=== PATIENT | female | born 2000 | race African-American/Black ===

== ENCOUNTER 2022-03-10 18:53 | Emergency (ER) | payer OTHER, SELFPAY ==
--- NOTE | ~2022-03-10 | XR_ITS ---
EXAMINATION: XR lumbar spine min 4V DATE: 03/10/2022 21:59 INDICATION: Low back pain TECHNIQUE: Anteroposterior, lateral, and bilateral oblique views of the lumbar spine, and cone-down l ateral view of the lumbosacral junction were obtained. COMPARISON: None. FINDINGS: There is no fracture, dislocation, or subluxation. The vertebral body heights, alignment, a nd intervertebral disc spaces are normal. The paravertebral soft tissues are unremarkable. IMPRESSION: 1. No acute osseous abnormality. Reviewed, dictated and finalized at location A.
--- NOTE | ~2022-03-10 | CT_ITS ---
EXAMINATION: CT cervical spine wo con DATE: 03/10/2022 22:14 INDICATION: Neck pain TECHNIQUE: Computed tomography (CT) of the cervical spine was performed without intravenous contrast. The dose-length product (DLP) was 313.84 mGy-cm. Automated exposure control and iterative reconstruc tion technique were employed. COMPARISON: None FINDINGS: There is reversal of normal cervical lordosis. There is no fracture, dislocation, or sublux ation. The vertebral body heights, alignment, and intervertebral disc spaces are normal. The paravert ebral soft tissues are unremarkable. The odontoid is intact. IMPRESSION: 1. No acute osseous abnormality. Reviewed, dictated and finalized at location A.
--- NOTE | ~2022-03-10 | XR_ITS ---
EXAMINATION: XR thoracic spine 3V DATE: 03/10/2022 22:00 INDICATION: Thoracic back pain TECHNIQUE: AP, lateral and lateral swimmer's views of the thoracic spine were obtained. COMPARISON: None. FINDINGS: There is no fracture, dislocation, or subluxation. The vertebral body heights, alignment, a nd intervertebral disc spaces are normal. The paravertebral soft tissues are unremarkable. IMPRESSION: 1. No acute osseous abnormality. Reviewed, dictated and finalized at location A.
[2022-03-10 19:17] VITALS: BP 140/81; PULSE 78; RESP 16; TEMP 37.1; O2SAT 100
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
[2022-03-10] MEDS: IBUPROFEN 600 MG TABLET PO (20:22)
[2022-03-10 22:27] VITALS: BP 110/76; PULSE 82; RESP 20
== END 2022-03-10 22:28 | disposition home or self-care (01) ==
PROVIDERS: Emergency Provider Emergency Medicine
DX: S16.1XXA Strain of muscle, fascia and tendon at neck level, initial encounter (principal); S29.9XXA Unspecified injury of thorax, initial encounter; S39.92XA Unspecified injury of lower back, initial encounter; V43.52XA Car driver injured in collision with other type car in traffic accident, initial encounter
CPT/HCPCS: 72072; 72110; 72125; 81025; 99284; A9270